=== PATIENT | male | born 1970 | race Caucasian/White ===

== ENCOUNTER 2024-01-29 14:23 | Observation (INO) | payer BC ==
--- NOTE | 2024-01-29 15:06 | ED ---
General Adult HPI - General Chief complaint: Dizziness Stated complaint: Dizziness Time Seen by Provider: 01/29/24 14:31 Source: patient, family, RN notes reviewed Mode of arrival: EMS Limitations: no limitations - History of Present Illness Initial comments: Patient is a 53-year-old male present to the emergency department with concerns with dizziness. Onset of symptoms was around 2 and half hours ago. Symptoms continue. Patient feels like he is spinning. No history of similar symptoms previously. No confusion or speech problems or weakness. - Related Data Home Medications Medication Instructions Recorded Confirmed Aspirin/Acetaminophen/Caffeine 1 - 2 tab PO DAILY PRN 01/29/24 01/29/24 [Excedrin Extra Strength Caplet] Ibuprofen [Motrin] 800 mg PO BID PRN 01/29/24 01/29/24 Losartan Potassium 100 mg PO DAILY 01/29/24 01/29/24 Pregabalin 200 mg PO TID 01/29/24 01/29/24 Rosuvastatin [Crestor] 10 mg PO HS 01/29/24 01/29/24 Testosterone [Androgel 1.62%] 2 pump TRANSDERM DAILY 01/29/24 01/29/24 carvediloL [Coreg] 25 mg PO BID 01/29/24 01/29/24 Allergies Allergy/AdvReac Type Severity Reaction Status Date / Time cephalexin [From Keflex] Allergy Rash/Hives Verified 01/29/24 16:40 Review of Systems ROS Statement: Those systems with pertinent positive or pertinent negative responses have been documented in the HPI. ROS Other: All systems not noted in ROS Statement are negative. Constitutional: Denies: fever Eyes: Denies: eye pain ENT: Denies: ear pain Respiratory: Denies: cough Cardiovascular: Denies: chest pain Neurological: Reports: vertigo. Denies: headache, weakness Past Medical History Past Medical History: Hypertension Additional Past Medical History / Comment(s): neuropathy History of Any Multi-Drug Resistant Organisms: None Reported Past Surgical History: Orthopedic Surgery Additional Past Surgical History / Comment(s): knee surgery, neck surgery Past Psychological History: No Psychological Hx Reported Smoking Status: Current every day smoker Past Alcohol Use History: Occasional Past Drug Use History: None Reported General Exam Limitations: no limitations General appearance: alert, in no apparent distress Head exam: Present: atraumatic, normocephalic Eye exam: Present: normal appearance, PERRL, EOMI, nystagmus ENT exam: Present: normal oropharynx Neck exam: Present: normal inspection Respiratory exam: Present: normal lung sounds bilaterally Cardiovascular Exam: Present: regular rate, normal rhythm GI/Abdominal exam: Present: soft. Absent: tenderness Extremities exam: Present: normal inspection Neurological exam: Present: alert, oriented X3, CN II-XII intact. Absent: motor sensory deficit Expanded Neurological exam: Present: protecting the airway Patient oriented to: Present: person, place, time Speech: Present: fluid speech Cranial nerves: EOM's Intact: Normal, Facial Sensation: Normal Sensory exam: Upper Extremity Light Touch: Normal, Lower Extremity Light Touch: Normal Motor strength exam: RUE: 5, LUE: 5, RLE: 5, LLE: 5 Eye Response: (4) open spontaneously Motor Response: (6) obeys commands Verbal Response: (5) oriented Psychiatric exam: Present: normal affect, normal mood Skin exam: Present: normal color Course Vital Signs 01/29/24 01/29/24 01/29/24 14:58 16:55 18:41 Temperature 98.4 F Pulse Rate 79 77 81 Respiratory 15 15 16 Rate Blood Pressure 156/104 155/97 147/88 O2 Sat by Pulse 95 92 L Oximetry EKG Findings - EKG Results: EKG: interpreted by ERMD ( LVH with repolarization changes), sinus rhythm, normal axis Medical Decision Making - Medical Decision Making Was pt. sent in by a medical professional or institution (, PA, BUSINESS TRAINER, urgent care, hospital, or skilled nursing...) When possible be specific @ -No Did you speak to anyone other than the patient for history (EMS, parent, family, police, friend...)? What history was obtained from this source @ -No Did you review nursing and triage notes (agree or disagree)? Why? @ -I reviewed and agree with nursing and triage notes Were old charts reviewed (outside hosp., previous admission, EMS record, old EKG, old radiological studies, urgent care reports/EKG's, skilled nursing records)? Report findings @ -No old charts were reviewed Differential Diagnosis (chest pain, altered mental status, abdominal pain women, abdominal pain men, vaginal bleeding, weakness, fever, dyspnea, syncope, headache, dizziness, GI bleed, back pain, seizure, CVA, palpatations, mental health, musculoskeletal)? @ -Differential Dizziness: Benign paroxysmal positional Vertigo, Meniere's disease, otitis media, acoustic neuroma, vertebrobasilar insufficiency, cerebellar stroke, encephalitis, hypovolemic, arrhythmia, coronary artery syndrome, anemia, this is not meant to be an all-inclusive list EKG interpreted by me (3pts min.). @ -As above X-rays interpreted by me (1pt min.). @ -None done CT interpreted by me (1pt min.). @ -CT brain without acute abnormality U/S interpreted by me (1pt. min.). @ -None done What testing was considered but not performed or refused? (CT, X-rays, U/S, labs)? Why? @ -None What meds were considered but not given or refused? Why? @ -None Did you discuss the management of the patient with other professionals (professionals i.e. , PA, BUSINESS TRAINER, lab, RT, psych nurse, social science research assistant, wind project manager, teacher, agricultural technical officer, shoe caser)? Give summary @ -This was discussed with practitioner Marya Talley will admit covering hospital call. Was smoking cessation discussed for >3mins.? @ -No Was critical care preformed (if so, how long)? @ -No Were there social determinants of health that impacted care today? How? (Homelessness, low income, unemployed, alcoholism, drug addiction, transportation, low edu. Level, literacy, decrease access to med. care, retirement, rehab)? @ -No Was there de-escalation of care discussed even if they declined (Discuss DNR or withdrawal of care, Hospice)? DNR status @ -No What co-morbidities impacted this encounter? (DM, HTN, Smoking, COPD, CAD, Cancer, CVA, ARF, Chemo, Hep., AIDS, mental health diagnosis, sleep apnea, morbid obesity)? @ -None Was patient admitted / discharged? Hospital course, mention meds given and route, prescriptions, significant lab abnormalities, going to OR and other pertinent info. @ -Patient presents with vertigo symptoms. Patient has significant nystagmus even at rest. On repeat evaluation patient still has some symptoms and still has significant nystagmus. Patient will be admitted with neurology consult. Admission orders written. Undiagnosed new problem with uncertain prognosis? @ -No Drug Therapy requiring intensive monitoring for toxicity (Heparin, Nitro, Insulin, Cardizem)? @ -No Were any procedures done? @ -No Diagnosis/symptom? @ -Vertigo Acute, or Chronic, or Acute on Chronic? @ -Acute Uncomplicated (without systemic symptoms) or Complicated (systemic symptoms)? @ -Default Side effects of treatment? @ -No Exacerbation, Progression, or Severe Exacerbation? @ -No Poses a threat to life or bodily function? How? (Chest pain, USA, NC, pneumonia, PE, COPD, DKA, ARF, appy, cholecystitis, CVA, Diverticulitis, Homicidal, Suicidal, threat to staff... and all critical care pts) @ -No - Lab Data Result diagrams: 01/29/24 15:06 01/29/24 15:06 Lab Results 01/29/24 01/29/24 01/29/24 Range/Units 15:06 15:06 15:06 WBC 9.1 (3.8-10.6) k/uL RBC 5.30 (4.30-5.90) m/uL Hgb 15.8 (13.0-17.5) gm/dL Hct 48.1 (39.0-53.0) % MCV 90.7 (80.0-100.0) fL MCH 29.9 (25.0-35.0) pg MCHC 32.9 (31.0-37.0) g/dL RDW 13.9 (11.5-15.5) % Plt Count 121 L (150-450) k/uL MPV 11.3 Neutrophils % 84 % Lymphocytes % 10 % Monocytes % 4 % Eosinophils % 2 % Basophils % 0 % Neutrophils # 7.6 (1.3-7.7) k/uL Lymphocytes # 0.9 L (1.0-4.8) k/uL Monocytes # 0.4 (0-1.0) k/uL Eosinophils # 0.2 (0-0.7) k/uL Basophils # 0.0 (0-0.2) k/uL Manual Slide Review Performed Large Platelets Present PT 10.7 (10.0-12.5) sec INR 1.0 (<1.2) APTT 24.1 (22.0-30.0) sec Sodium 141 (137-145) mmol/L Potassium 4.6 (3.5-5.1) mmol/L Chloride 107 (98-107) mmol/L Carbon Dioxide 27 (22-30) mmol/L Anion Gap 7 mmol/L BUN 17 (9-20) mg/dL Creatinine 1.07 (0.66-1.25) mg/dL Est GFR (CKD-EPI)AfAm >90 (>60 ml/min/1.73 sqM) Est GFR (CKD-EPI)NonAf 79 (>60 ml/min/1.73 sqM) Glucose 112 H (74-99) mg/dL Plasma Lactic Acid Reed (0.7-2.0) mmol/L Calcium 9.2 (8.4-10.2) mg/dL Magnesium 2.1 (1.6-2.3) mg/dL Total Bilirubin 0.5 (0.2-1.3) mg/dL AST 35 (17-59) U/L ALT 38 (4-49) U/L Alkaline Phosphatase 132 H (38-126) U/L Troponin I (0.000-0.034) ng/mL Total Protein 6.8 (6.3-8.2) g/dL Albumin 4.3 (3.5-5.0) g/dL 01/29/24 01/29/24 Range/Units 15:06 15:06 WBC (3.8-10.6) k/uL RBC (4.30-5.90) m/uL Hgb (13.0-17.5) gm/dL Hct (39.0-53.0) % MCV (80.0-100.0) fL MCH (25.0-35.0) pg MCHC (31.0-37.0) g/dL RDW (11.5-15.5) % Plt Count (150-450) k/uL MPV Neutrophils % % Lymphocytes % % Monocytes % % Eosinophils % % Basophils % % Neutrophils # (1.3-7.7) k/uL Lymphocytes # (1.0-4.8) k/uL Monocytes # (0-1.0) k/uL Eosinophils # (0-0.7) k/uL Basophils # (0-0.2) k/uL Manual Slide Review Large Platelets PT (10.0-12.5) sec INR (<1.2) APTT (22.0-30.0) sec Sodium (137-145) mmol/L Potassium (3.5-5.1) mmol/L Chloride (98-107) mmol/L Carbon Dioxide (22-30) mmol/L Anion Gap mmol/L BUN (9-20) mg/dL Creatinine (0.66-1.25) mg/dL Est GFR (CKD-EPI)AfAm (>60 ml/min/1.73 sqM) Est GFR (CKD-EPI)NonAf (>60 ml/min/1.73 sqM) Glucose (74-99) mg/dL Plasma Lactic Acid Reed 1.3 (0.7-2.0) mmol/L Calcium (8.4-10.2) mg/dL Magnesium (1.6-2.3) mg/dL Total Bilirubin (0.2-1.3) mg/dL AST (17-59) U/L ALT (4-49) U/L Alkaline Phosphatase (38-126) U/L Troponin I <0.012 (0.000-0.034) ng/mL Total Protein (6.3-8.2) g/dL Albumin (3.5-5.0) g/dL Disposition Clinical Impression: Vertigo Disposition: ADMITTED IP TO THIS HOSP Is patient prescribed a controlled substance at d/c from ED?: No Referrals: Reynaldo Dhillon DO [Primary Care Provider] - 1-2 days Time of Disposition: 18:47
[2024-01-29 15:40] LABS: ALT 38 U/L (4-49); AST 35 U/L (17-59); African American GFR (CKD) >90 (>60 ml/min/1.73 sqM); Albumin 4.3 g/dL (3.5-5.0); Alkaline Phosphatase 132 U/L (38-126); Anion Gap 7 mmol/L; Blood Urea Nitrogen 17 mg/dL (9-20); Calcium 9.2 mg/dL (8.4-10.2); Carbon Dioxide 27 mmol/L (22-30); Chloride 107 mmol/L (98-107); Glucose 112 mg/dL (74-99); Magnesium 2.1 mg/dL (1.6-2.3); Non-African American GFR(CKD) 79 (>60 ml/min/1.73 sqM); Potassium 4.6 mmol/L (3.5-5.1); Sodium 141 mmol/L (137-145); Total Bilirubin 0.5 mg/dL (0.2-1.3); Total Protein 6.8 g/dL (6.3-8.2)
[2024-01-29 15:45] LABS: Partial Thromboplastin Time 24.1 sec (22.0-30.0); Prothrombin Time 10.7 sec (10.0-12.5)
[2024-01-29] MEDS: SODIUM CHLORIDE 0.9% 1,000 ML IV STA (15:49)
[2024-01-29] MEDS: METOCLOPRAMIDE 5 MG/ML 2 ML VIAL IVP STA (15:49)
[2024-01-29] MEDS: MECLIZINE 12.5 MG TAB PO STA (15:49)
[2024-01-29 15:50] LABS: Basophils % (A) 0 %; Eosinophils # (A) 0.2 k/uL (0-0.7); Eosinophils % (A) 2 %; HCT 48.1 % (39.0-53.0); HGB 15.8 gm/dL (13.0-17.5); Lymphocytes # (A) 0.9 k/uL (1.0-4.8); Lymphocytes % (A) 10 %; MCH 29.9 pg (25.0-35.0); MCHC 32.9 g/dL (31.0-37.0); MCV 90.7 fL (80.0-100.0); Mean Platelet Volume 11.3; Monocytes # (A) 0.4 k/uL (0-1.0); Monocytes % (A) 4 %; Neutrophils # (A) 7.6 k/uL (1.3-7.7); Neutrophils % (A) 84 %; Platelet Count 121 k/uL (150-450); RDW 13.9 % (11.5-15.5); WBC 9.1 k/uL (3.8-10.6)
--- NOTE | 2024-01-29 16:02 | CT ---
EXAMINATION TYPE: CT brain wo con CT DLP: 1801 mGycm, Automated exposure control for dose reduction was used. DATE OF EXAM: 01/29/2024 3:45 PM COMPARISON: None. CLINICAL INDICATION: Male, 53 years old with history of weakness, vision issues/dizziness TECHNIQUE: Brain: Axial CT images of the brain were obtained with coronal and sagittal reformats created and rev iewed. Contrast used: None. Oral contrast used: None. FINDINGS: Brain: Extra-axial spaces: No abnormal extra-axial fluid collections. Ventricular system: Within normal limits Cerebral parenchyma: No acute intraparenchymal hemorrhage or mass effect. The baires-white junction is well differentiated. Cerebellum: Unremarkable. Mass effect: No evidence of midline shift. Intracranial vasculature: unremarkable Soft tissues: Normal. Calvarium/osseous structures: No depressed skull fracture. Paranasal sinuses and mastoid air cells: Mild scattered paranasal sinus disease. Visualized orbits: Orbital contents are intact. IMPRESSION: No acute intracranial process.
--- NOTE | 2024-01-29 16:04 | XR ---
EXAMINATION TYPE: XR chest 2V DATE OF EXAM: 01/29/2024 3:44 PM CLINICAL INDICATION: Male, 53 years old with history of Weakness; PHH COMPARISON: None TECHNIQUE: XR chest 2V Frontal view of the chest. FINDINGS: Lungs/Pleura: There is no evidence of pleural effusion, focal consolidation, or pneumothorax. Pulmonary vascularity: Pulmonary vascular congestion. Heart/mediastinum: Cardiomediastinal silhouette is enlarged. Musculoskeletal: No acute osseous pathology. There is fixation hardware in the lower cervical spine. IMPRESSION: Cardiomegaly and mild pulmonary vascular congestion. Correlate with BNP for congestive heart failure.
--- NOTE | 2024-01-29 16:48 | CT ---
EXAMINATION TYPE: CT angio head neck CT DLP: 682.8 mGycm, Automated exposure control for dose reduction was used. DATE OF EXAM: 01/29/2024 4:07 PM COMPARISON: None. CLINICAL INDICATION: Male, 53 years old with history of Vertigo with nystagmus; PHH, vision issues/di zziness TECHNIQUE: Axially acquired helical CT angiogram of the head and neck was obtained with contrast. Axi al images are supplemented with 3D reconstructions and MIP images which were post-processed at an in dependent workstation. NASCET criteria used. Contrast used:100ml mL of Isovue 370 with IV Contrast, Oral contrast used: None. FINDINGS: CTA HEAD: No evidence of acute intracranial hemorrhage, mass effect, or midline shift. The ventricles, sulci, a nd cisterns are unremarkable. The visualized portions of the internal carotid arteries, middle cerebral arteries, anterior cerebral arteries, and posterior cerebral arteries are patent. The basilar and vertebral arteries are patent. CTA NECK: Right Carotid System: The common carotid artery and external carotid artery are patent. The carotid bifurcation demonstrate s no evidence of hemodynamically significant stenosis. The remaining portions of the internal carotid artery demonstrate normal size without significant narrowing. Left Carotid System: The common carotid artery and external carotid artery are patent. The carotid bifurcation demonstrate s no evidence of hemodynamically significant stenosis. The remaining portions of the internal carotid artery demonstrate normal size without significant narrowing. Vertebral arteries are patent without evidence hemodynamically significant stenosis. There is a three-vessel aortic arch. The origins of the great vessels are patent. No evidence of hemo dynamically significant stenosis. Mildly enlarged right low paratracheal lymph node measuring up to 19 mm in short axis. IMPRESSION: 1. No evidence of dissection of the cervical internal carotid arteries or vertebral arteries or any e vidence of significant stenosis at the carotid bifurcations. 2. No evidence of intracranial high-grade stenosis or intracranial aneurysm. 3. Enlarged right low paratracheal lymph node further evaluation of chest recommended correlation wit h history of any priors recommended..
[2024-01-29 17:48] LABS: Large Platelets Present
[2024-01-29] MEDS: SCOPOLAMINE 1 MG/72 HR PATCH TRANSDERM STA (18:37)
[2024-01-29] MEDS ORDERED: NALOXONE 0.4 MG/ML 1 ML VIAL IV PRN (18:47)
[2024-01-29] MEDS ORDERED: MECLIZINE 25 MG TAB PO PRN (18:48)
[2024-01-29] MEDS: carvediloL 12.5 MG TAB PO SCH (18:59)
[2024-01-29] MEDS: ATORVASTATIN 20 MG TAB PO SCH (20:39)
[2024-01-29] MEDS: PREGABALIN 100 MG CAP PO SCH (21:15)
[2024-01-29] MEDS: METOCLOPRAMIDE 5 MG/ML 2 ML VIAL IVP SCH (23:14)
[2024-01-30] MEDS: NON FORMULARY DRUG (Testosterone [Androgel 1.62%] 75 GM Gel.Md.Pmp) TRANSDERM SCH (08:43)
[2024-01-30] MEDS: LOSARTAN 50 MG TAB PO SCH (08:45)
--- NOTE | 2024-01-30 12:43 | P.CNNES ---
History of Present Illness Consult date: 01/30/24 Requesting physician: Odell Tapia Reason for Consult: intractable vertigo with nystagmus History of Present Illness: This is a 53-year-old gentleman who presents to the emergency department because of dizziness with nausea and vomiting. He stated that yesterday around noon he was watching TV and all of a sudden he felt he felt dizzy and he felt the room spinning. He had episode of nausea and vomiting. He felt as symptoms is worse with position. Denies any focal weakness, numbness, visual disturbance, difficulty getting words out. Denies any history of stroke. He does have underlying history of hypertension. He smokes 1 pack a day. Denies A-fib or TIA in the past. Today patient feels he he is drastically better compared to yesterday. Denies any further nausea vomiting episode. He has minimal ringing in the ears today is drastically better. Denies any head trauma any falls. Denies any recent infection. Denies any hearing loss. Some of the workup during this hospital visit consisted of: I reviewed the lab workup. CT of the head is reported as no acute intracranial process. I Personally reviewed the CT and I agree with the report. CT angiography of the head and neck is reported as no evidence of dissection of cervical internal carotid artery or vertebral artery or any evidence of significant stenosis at the carotid bifurcation. No evidence of intracranial high-grade stenosis or intracranial aneurysm. Review of Systems Positive and negative as per HPI. Past Medical History Past Medical History: Hypertension Additional Past Medical History / Comment(s): neuropathy History of Any Multi-Drug Resistant Organisms: None Reported Past Surgical History: Orthopedic Surgery Additional Past Surgical History / Comment(s): knee surgery, neck surgery Past Anesthesia/Blood Transfusion Reactions: No Reported Reaction Past Psychological History: No Psychological Hx Reported Smoking Status: Current every day smoker Past Alcohol Use History: Occasional Past Drug Use History: None Reported - Past Family History Father Family Medical History: Cancer, Hypertension, Myocardial Infarction ([place]), Prostate Disorder Mother Family Medical History: Cancer Medications and Allergies Home Medications Medication Instructions Recorded Confirmed Type Aspirin/Acetaminophen/Caffeine 1 - 2 tab PO DAILY PRN 01/29/24 01/29/24 History [Excedrin Extra Strength Caplet] Ibuprofen [Motrin] 800 mg PO BID PRN 01/29/24 01/29/24 History Losartan Potassium 100 mg PO DAILY 01/29/24 01/29/24 History Pregabalin 200 mg PO TID 01/29/24 01/29/24 History Rosuvastatin [Crestor] 10 mg PO HS 01/29/24 01/29/24 History Testosterone [Androgel 1.62%] 2 pump TRANSDERM DAILY 01/29/24 01/29/24 History carvediloL [Coreg] 25 mg PO BID 01/29/24 01/29/24 History Allergies Allergy/AdvReac Type Severity Reaction Status Date / Time cephalexin [From Keflex] Allergy Rash/Hives Verified 01/29/24 16:40 Physical Examination - Vital Signs Vital Signs: Vital Signs Temp Pulse Pulse Resp BP BP Pulse Ox 01/30/24 07:00 98.2 F 66 17 132/83 94 L 01/30/24 00:58 96.8 F L 56 L 15 113/69 92 L 01/29/24 21:17 70 16 127/81 95 01/29/24 21:01 98 F 62 18 130/83 95 01/29/24 18:41 81 16 147/88 01/29/24 16:55 77 15 155/97 92 L 01/29/24 14:58 98.4 F 79 15 156/104 95 Intake and Output 01/29/24 01/30/24 01/30/24 22:59 06:59 14:59 Other: # Voids 1 Weight 127.006 kg GENERAL: The patient is lying in bed and is not in acute distress. NEUROLOGICAL: Higher mental function: The patient is awake, alert, oriented to self, place and time. Patient is following commands. No aphasia and no neglect. Cranial nerves: The pupils are round, equal and reactive to light and accom modation. Visual berry are full to confrontation throughout. Extraocular movement is intact no nystagmus is noted. Facial sensation is normal to touch throughout. The facial strength is normal throughout. Hearing is normal bilaterally to hand rub. Tongue is midline and moved [id number] without any difficulty. No dysarthria is noted. Shoulder shrug is normal bilaterally. Motor: The strength is 5 over 5 throughout. Normal tone and bulk. Cerebellum: Gait is normal. Normal finger to nose heel to villar bilaterally. Sensation: Sensation is normal to touch throughout. Reflexes (right/left): 2+ throughout. Plantars are downgoing bilaterally. Results - Laboratory Findings CBC and BMP: 01/29/24 15:06 01/29/24 15:06 Abnormal Lab Findings: Abnormal Labs 01/29/24 01/29/24 15:06 15:06 Plt Count 121 L Lymphocytes # 0.9 L Glucose 112 H Alkaline Phosphatase 132 H Assessment and Plan Assessment: This is a 53-year-old gentleman who presented emergency department because of dizziness, nausea vomiting and describes as if the room is spinning and it was worse with position. He feels the symptoms drastically better today. Acute vertigo and it appears more peripheral.--Today patient is drastically better Hypertension Tobacco use and he smokes 1 pack a day. Obesity Plan: Ordered MRI of the brain with and without Patient is on meclizine 25 mg 1 tablet 4 times daily as needed. He received me clizine yesterday while in the ED. He has a scopolamine patch. If MRI of the brain is unremarkable and patient continues to have dizziness then recommend the patient to follow-up with ENT as an outpatient and consider vestibular therapy Will defer the rest of the medical management to the primary team Discussed with the patient and his nurse Thank for the consultation Time with Patient: Greater than 30
--- NOTE | 2024-01-30 16:17 | P.HPIM ---
History of Present Illness H&P Date: 01/30/24 Patient is a 53-year-old male with hypertension presented to emergency department with dizziness for about 2.5 hours. He stated that he felt like he was spinning, was sweating, had diplopia. He has never experienced the symptoms previously. He endorses 1 episode of non-bloody emesis. Endorses mild tinnitus that he believes may have worsened slightly during episode of dizziness. He denies chest pain, weakness, numbness, visual disturbance, speech difficulties. Denies history of stroke or seizure. Brain CT unremarkable. EKG unremarkable. Chest x-ray shows cardiomegaly and mild pulmonary vascular congestion. CT angiography showed large right lower paratracheal lymph node. Brain MRI pending. WBCs 9.1, hemoglobin 15.8, platelet 121, sodium 141, potassium 4.6, troponin <0.012. Afebrile, hypertensive with systolic in the 150s. ED documentation reviewed. Review of systems: Pertinent positives and negatives as discussed in HPI, a complete review of systems was performed and all other systems are negative. 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 Physical examination: Vital signs reviewed General: non toxic, no distress, appears at stated age, normal weight Derm: no unusual rashes/lesions, warm Head: atraumatic, normocephalic, symmetric Eyes: EOMI, no lid lag, anicteric sclera, pupils equal round reactive to light ENT: Nose and ears atraumatic Neck: No cervical lymphadenopathy, trachea midline, supple Mouth: no lip lesion, mucus membranes moist Cardiovascular: S1S2 reg, no murmur, Lungs: CTA bilateral, no rhonchi, no rales, no accessory muscle use Abdominal: soft, nontender to palpation, no guarding Ext: muscle strength 5 out of 5 in all 4 extremities grossly, no gross muscle atrophy, no contractures, positive dorsalis pedis pulse bilateral, no edema Neuro: CN II-XI grossly intact, no gross focal neuro deficits Psych: Alert, oriented, appropriate affect and mood Assessment/Plan: #. Benign paroxysmal positional vertigo Continue meclazine Continue scopolamine patch Brain MRI pending Neurology consulted #. Hypertension Continue Coreg 25 mg daily Continue Cozaar 100 mg daily #. Neuropathy Continue gabapentin 200 three times daily. #. Hyperlipidemia Continue Lipitor 20 mg daily DVT prophylaxis: Mechanical Chronic conditions: Hypertension, osteoarthritis, cervical spinal fusion for bulging/herniated disc The patient is admitted with an anticipated less than 2 midnight stay for evaluation of dizziness CODE STATUS: Full code Discussed with: Patient Anticipated discharge place: Home Dr. Alex MD I have performed a history and physical examination and medical decision making of this patient, discussed the same with the the resident, and agree with the assessment and plan as written. I performed brief physical exam. Past Medical History Past Medical History: Hypertension Additional Past Medical History / Comment(s): neuropathy History of Any Multi-Drug Resistant Organisms: None Reported Past Surgical History: Orthopedic Surgery Additional Past Surgical History / Comment(s): knee surgery, neck surgery Past Anesthesia/Blood Transfusion Reactions: No Reported Reaction Past Psychological History: No Psychological Hx Reported Smoking Status: Current every day smoker Past Alcohol Use History: Occasional Past Drug Use History: None Reported - Past Family History Father Family Medical History: Cancer, Hypertension, Myocardial Infarction ([place]), Prostate Disorder Mother Family Medical History: Cancer Medications and Allergies Home Medications Medication Instructions Recorded Confirmed Type Aspirin/Acetaminophen/Caffeine 1 - 2 tab PO DAILY PRN 01/29/24 01/29/24 History [Excedrin Extra Strength Caplet] Ibuprofen [Motrin] 800 mg PO BID PRN 01/29/24 01/29/24 History Losartan Potassium 100 mg PO DAILY 01/29/24 01/29/24 History Pregabalin 200 mg PO TID 01/29/24 01/29/24 History Rosuvastatin [Crestor] 10 mg PO HS 01/29/24 01/29/24 History Testosterone [Androgel 1.62%] 2 pump TRANSDERM DAILY 01/29/24 01/29/24 History carvediloL [Coreg] 25 mg PO BID 01/29/24 01/29/24 History Allergies Allergy/AdvReac Type Severity Reaction Status Date / Time cephalexin [From Keflex] Allergy Rash/Hives Verified 01/29/24 16:40 Physical Exam Vitals: Vital Signs Temp Pulse Pulse Resp BP BP Pulse Ox 01/30/24 00:58 96.8 F L 56 L 15 113/69 92 L 01/29/24 21:17 70 16 127/81 95 01/29/24 21:01 98 F 62 18 130/83 95 01/29/24 18:41 81 16 147/88 01/29/24 16:55 77 15 155/97 92 L 01/29/24 14:58 98.4 F 79 15 156/104 95 Intake and Output 01/29/24 01/30/24 01/30/24 22:59 06:59 14:59 Other: # Voids 1 Weight 127.006 kg Results CBC & Chem 7: 01/29/24 15:06 01/29/24 15:06 Labs: Abnormal Lab Results - Last 24 Hours (Table) 01/29/24 01/29/24 Range/Units 15:06 15:06 Plt Count 121 L (150-450) k/uL Lymphocytes # 0.9 L (1.0-4.8) k/uL Glucose 112 H (74-99) mg/dL Alkaline Phosphatase 132 H (38-126) U/L Thrombosis Risk Factor Assmnt - Choose All That Apply Each Factor Represents 1 point: Age 41-60 years, Obesity (BMI >25) Other Risk Factors: No Thrombosis Risk Factor Assessment Total Risk Factor Score: 2 Thrombosis Risk Factor Assessment Level: Low Risk
[2024-01-31 13:47] VITALS: BP 135/89; PULSE 66; RESP 18; TEMP 97.9
--- NOTE | 2024-01-31 14:13 | P.PN ---
Subjective Progress Note Date: 01/31/24 I am following up with the patient and he states he is having mild dizziness no further vomiting. Feels his symptoms are drastically better compared to his initial presentation. Denies any new neurological issues. Pending MRI of the brain. Objective - Vital Signs Vital signs: Vital Signs Temp 97.9 F 01/31/24 13:14 Pulse 66 01/31/24 13:14 Resp 18 01/31/24 13:14 BP 135/89 01/31/24 13:14 Pulse Ox 92 L 01/31/24 13:14 FiO2 Intake & Output 01/30/24 01/31/24 01/31/24 18:59 06:59 18:59 Other: # Voids 3 2 2 - Exam GENERAL: The patient is lying in bed and is not in acute distress. NEUROLOGICAL: Higher mental function: The patient is awake, alert, oriented to self, place and time. Patient is following commands. No aphasia and no neglect. Cranial nerves: The pupils are round, equal and reactive to light and accommodation. Visual berry are full to confrontation throughout. Extraocular movement is intact no nystagmus is noted. Facial sensation is normal to touch throughout. The facial strength is normal throughout. Hearing is normal bilaterally to hand rub. Tongue is midline and moved [id number] without any difficulty. No dysarthria is noted. Shoulder shrug is normal bilaterally. Motor: The strength is 5 over 5 throughout. Normal tone and bulk. Cerebellum: Normal finger to nose heel to villar bilaterally. Sensation: Sensation is normal to touch throughout. Reflexes (right/left): 2+ throughout. Plantars are downgoing bilaterally. Some of the workup during this hospital visit consisted of: CT of the head is reported as no acute intracranial process. I Personally reviewed the CT and I agree with the report. CT angiography of the head and neck is reported as no evidence of dissection of cervical internal carotid artery or vertebral artery or any evidence of significant stenosis at the carotid bifurcation. No evidence of intracranial high-grade stenosis or intracranial aneurysm. - Labs CBC & Chem 7: 01/29/24 15:06 01/29/24 15:06 Assessment and Plan Assessment: This is a 53-year-old gentleman who presented emergency department because of dizziness, nausea vomiting and describes as if the room is spinning and it was worse with position. He feels the symptoms drastically better today. Acute vertigo and it appears more peripheral.--Is drastically better Hypertension Tobacco use and he smokes 1 pack a day. Obesity Plan: Pending MRI of the brain with and without Patient is on meclizine 25 mg 1 tablet 4 times daily as needed. He received meclizine yesterday while in the ED. He has a scopolamine patch. If MRI of the brain is unremarkable and patient continues to have dizziness then recommend the patient to follow-up with ENT as an outpatient and consider vestibular therapy Will defer the rest of the medical management to the primary team If MRI of the brain is negative for any acute or subacute stroke or any mass then the patient is cleared from a neurological perspective. Discussed with the patient and his nurse Time with Patient: Less than 30
--- NOTE | 2024-01-31 15:44 | MR ---
INDICATION: Patient age:Male; 53 years old; Reason for study: vertigo; PHH. COMPARISON: CT brain 01/29/2024, CT angiogram head and neck 01/29/2024. TECHNIQUE: Multi planar, multi sequence imaging was performed through the brain. The patient was then given 13 cc of Gadavist intravenously and multi planar, T1 fat-saturation images were obtained. FINDINGS: The baires-white junctions, ventricular system, basal cisterns appear unremarkable. Diffusion-weighted imaging shows no evidence of restricted diffusion to suggest acute/subacute infarct. Intracranial art erial flow voids are maintained. Midline structures show no abnormality. A couple of T2/FLAIR hyperin tense foci within the right frontoparietal region subcortical white matter with largest measuring 6 m m (series 601, image 25). The susceptibility weighted images do not reveal any evidence for micro-hem orrhage. After administration of gadolinium, no abnormal enhancement is seen. The bone marrow signal is within normal limits. The globes are unremarkable. Mild mucosal thickening of the inferior left maxillary sinus and right ethmoid sinus. IMPRESSION: 1. No evidence of intracranial mass, acute/subacute infarct, or abnormal enhancement. 2. Few nonspecific white matter changes, likely related to small vessel ischemic disease versus other etiologies such as demyelination or migraine.
--- NOTE | 2024-01-31 15:59 | P.DS ---
Providers Date of admission: 01/29/24 18:49 Attending physician: Tobias Nicholas Consults: 01/29/24 18:47 Consult Physician Urgent Consulting Provider: Nikita Portillo Consult Reason/Comments: Intractable vertigo with nystagmus Do you want consulting provider notified?: Yes Primary care physician: Reynaldo Dhillon DO Hospital Course: Patient is a 53-year-old male with hypertension presented to emergency department with dizziness for about 2.5 hours. He stated that he felt like he was spinning, was sweating, had diplopia. He has never experienced the symptoms previously. He endorses 1 episode of non-bloody emesis. Endorses mild tinnitus that he believes may have worsened slightly during episode of dizziness. He denies chest pain, weakness, numbness, visual disturbance, speech difficulties. Denies history of stroke or seizure. Brain CT unremarkable. EKG unremarkable. Chest x-ray shows cardiomegaly and mild pulmonary vascular congestion. CT angiography showed large right lower paratracheal lymph node. Brain MRI ordered per neurology. WBCs 9.1, hemoglobin 15.8, platelet 121, sodium 141, potassium 4.6, troponin <0.012. Afebrile, hypertensive with systolic in the 150s. 01/30. Patient states he is doing well today. Diplopia significantly improved, mild dizziness persists. No nausea/vomiting. Denies chest pain. No weakness. Brain MRI showed no evidence of intracranial mass, acute/subacute infarct, or abnormal enhancement. Patient is hemodynamically stable for discharge. Patient is to follow-up with primary care provider in 1 to 2 days. Patient should follow-up with ENT outpatient if symptoms return/persist. Final Diagnosis: #. Benign paroxysmal positional vertigo #. Hypertension #. Neuropathy #. Hyperlipidemia Physical examination: Vital signs are stable. General: No acute distress. HEENT: Head exam is unremarkable. Lungs: Bilateral breath sounds present; no rhonchi, wheezes, or rales. Heart: Rate and rhythm are regular. S1S2 present. No murmur/rub/gallops. Abdomen: Nontender. Extremities: No edema present. Dr. Alex MD I have performed a history and physical examination and medical decision making of this patient, discussed the same with the the resident, and agree with the assessment and plan as written. I performed brief physical exam. Patient Condition at Discharge: Good Plan - Discharge Summary Discharge Rx Participant: Yes New Discharge Prescriptions: Continue Aspirin/Acetaminophen/Caffeine [Excedrin Extra Strength Caplet] 1 - 2 tab PO DAILY PRN PRN Reason: Migraine Headache Pregabalin 200 mg PO TID Ibuprofen [Motrin] 800 mg PO BID PRN PRN Reason: Pain Rosuvastatin [Crestor] 10 mg PO HS Testosterone [Androgel 1.62%] 2 pump TRANSDERM DAILY carvediloL [Coreg] 25 mg PO BID Losartan Potassium 100 mg PO DAILY Discharge Medication List Aspirin/Acetaminophen/Caffeine [Excedrin Extra Strength Caplet] 1 - 2 tab PO DAILY PRN 01/29/24 [History] Ibuprofen [Motrin] 800 mg PO BID PRN 01/29/24 [History] Losartan Potassium 100 mg PO DAILY 01/29/24 [History] Pregabalin 200 mg PO TID 01/29/24 [History] Rosuvastatin [Crestor] 10 mg PO HS 01/29/24 [History] Testosterone [Androgel 1.62%] 2 pump TRANSDERM DAILY 01/29/24 [History] carvediloL [Coreg] 25 mg PO BID 01/29/24 [History] Follow up Appointment(s)/Referral(s): Reynaldo Dhillon DO [Primary Care Provider] - 1-2 days Patient Instructions/Handouts: Vertigo (DC) Activity/Diet/Wound Care/Special Instructions: Follow up with primary care provider in 1 to 2 days. Follow up with ENT outpatient if symptoms return/persist. Discharge Disposition: HOME SELF-CARE
== END 2024-01-31 16:49 | disposition home or self-care (01) ==
LOC: EC 14:23 → 6NMEDSUR 18:49 → 1SOBS 19:00 → 6NMEDSUR 01-31 15:55
PROVIDERS: ADMIT Hospitalist; ATTEND Hospitalist
DX: H81.10 Benign paroxysmal vertigo, unspecified ear (principal); I11.9 Hypertensive heart disease without heart failure; G62.9 Polyneuropathy, unspecified; E78.5 Hyperlipidemia, unspecified; R09.89 Other specified symptoms and signs involving the circulatory and respiratory systems; M19.90 Unspecified osteoarthritis, unspecified site; E66.9 Obesity, unspecified; F17.210 Nicotine dependence, cigarettes, uncomplicated; Z68.39 Body mass index [BMI] 39.0-39.9, adult; Z79.899 Other long term (current) drug therapy; Z88.1 Allergy status to other antibiotic agents; Z98.1 Arthrodesis status
CPT/HCPCS: 36415; 70450; 70496; 70498; 70553; 71046; 80053; 83605; 83735; 84484; 85025; 85610; 85730; 93005; 96361; 96374; 96375; 96376; 99285